=== PATIENT | female | born 1990 | race Caucasian/White ===

== ENCOUNTER 2018-01-26 02:35 | Inpatient (IN) | payer MEDICAID ==
[2018-01-26 03:17] LABS: URINE SOURCE RANDOM
[2018-01-26 03:24] LABS: URINE BILIRUBIN NEGATIVE (NEGATIVE); URINE BLOOD TRACE (NEGATIVE); URINE GLUCOSE (UA) NEGATIVE (NEGATIVE); URINE KETONE NEGATIVE (NEGATIVE); URINE LEUKOCYTE ESTERASE SMALL (NEGATIVE); URINE MICROSCOPIC INDICATED? YES; URINE NITRATE NEGATIVE (NEGATIVE); URINE PH 5.5 (4.6 - 8.0); URINE PROTEIN TRACE mg/dL (NEGATIVE); URINE UROBILINOGEN 0.2 E.U./dL (0.2 - 1.0)
[2018-01-26 03:28] LABS: % EOSINOPHILS 0.9 % (0.0-5.0); BASOPHILE ABSOLUTE 0.1 Th/cumm (0-0.2); EOSINOPHILE ABSOLUTE 0.1 Th/cmm (0.1-0.4); MONOCYTE ABSOLUTE 0.7 Th/cmm (0.3-1.0)
[2018-01-26 03:30] LABS: % BASOPHILS 0.4 % (0.0-2.0); % LYMPHOCYTES 13.9 % (20.0-50.0); % MONOCYTES 4.7 % (2.0-10.0); % NEUTROPHILS 80.1 % (40.0-80.0); HEMOGLOBIN 13.9 gm/dL (12-16); MEAN CELL VOLUME 85.6 fl (81-100); MEAN CORPUSCULAR HEMOGLOBIN 30.5 pg (27.0-31.0); MEAN CORPUSCULAR HGB CONC 35.6 pg (28.0-36.0); MEAN PLATELET VOLUME 8.3 fl; NEUTROPHILE ABSOLUTE 11.2 Th/cmm (1.8-8.0); PLATELET COUNT 260 Th/cmm (150-400); RED BLOOD COUNT 4.56 Mil/cmm (3.80-5.10); RED CELL DISTRIBUTION WIDTH 12.6 % (11.5-20.0); WHITE BLOOD COUNT 14.1 Th/cmm (4.8-10.8)
[2018-01-26 03:31] LABS: URINE CLARITY HAZY (CLEAR); URINE COLOR YELLOW
[2018-01-26 03:34] LABS: URINE BACTERIA MODERATE /hpf (NONE SEEN); URINE EPITHELIAL CELLS MANY /lpf (FEW); URINE RBC 0-2 /hpf (0-5)
[2018-01-26 03:36] LABS: ALB/GLOB RATIO 1.5 (1.0-1.8); ALBUMIN 4.3 gm/dL (3.7-5.3); ALKALINE PHOSPHATASE 58 U/L (34-104); ANION GAP 13.5 (7.0-16.0); BILIRUBIN,TOTAL 0.7 mg/dL (0.3-1.0); BUN - UREA NITROGEN 11 mg/dL (7-25); CALCIUM SERUM 9.3 mg/dL (8.6-10.3); CARBON DIOXIDE 22.9 mEq/L (21.0-31.0); CHLORIDE 105 mEq/L (98-107); CREATININE - SERUM 0.7 mg/dL (0.6-1.2); GFR AFRICAN-AMERICAN > 60.0 ml/min (>90); GFR NON AFRICAN-AMERICAN > 60.0 ml/min; GLUCOSE 119 mg/dL (70-105); LIPASE 33 U/L (11-82); POTASSIUM SERUM 3.4 mEq/L (3.5-5.1); SGOT 20 U/L (13-39); SGPT/ALT 16 U/L (7-52); SODIUM SERUM 138 mEq/L (136-145); TOTAL PROTEIN,SERUM 7.1 gm/dL (6.0-8.3)
--- NOTE | 2018-01-26 03:47 | ED Physician Chart ---
ED Chief Complaint/HPI - Patient Information Date Seen:: 01/26/18 Time Seen:: 03:46 Chief Complaint:: Epigastric pain History of Present Illness:: 27 yo previously healthy female had sudden onset of sharp, constant epigastric pain for 8 hours. Patient had nausea and vomited once with food content without blood. Patient had chills but denied fever or diarrhea. Allergies:: Allergies Allergy/AdvReac Type Severity Reaction Status Date / Time No Known Allergies Allergy Verified 01/26/18 02:52 Vitals:: Vital Signs - 8 hr 01/26/18 02:40 Temp 97.8 F HR 76 RR 18 BP 105/72 O2 Sat % 99 ED Review of Systems - Review of Systems General/Constitutional: Chills Skin: No rash Head: Light headed Eyes: No pain ENT: No nasal drainage Neck: No neck pain, No thyromegaly Cardio Vascular: No chest pain Pulmonary: SOB, No cough GI: Nausea, Vomiting, No diarrhea G/U: No dysuria Musculoskeletal: No bone or joint pain Psychiatric: No prior psych history Neurological: No focal symptoms ED Past Medical History - Past Medical History Past Medical History: No significant medical hx, Other () Social History: Non Smoker, No Alcohol, No Drug Use Surgical History: None Family Medical History - Family Member Mother History Unknown: Yes ED Physical Exam - Physical Examination General/Constitutional: Awake, Alert Head: Atraumatic Eyes: PERRL Skin: No skin lesions ENMT: Nasal exam nl Neck: No nuchal rigidity Respiratory: Clear to Auscultation, No Wheeze/Rhonchi/Rales Cardio Vascular: RRR, No murmur, gallop, rubs, NL S1 S2 Other GI comments:: Epigastric and RLQ tenderness Extremities: normal strength in all extremities Neuro/Psych: Normal sensory exam, Normal motor strength, No focal deficits ED Labs/Radiology/EKG Results - Lab Results Results: Laboratory Tests 01/26/18 01/26/18 01/26/18 02:50 02:50 03:10 WBC 14.1 H RBC 4.56 Hgb 13.9 Hct 39.0 L MCV 85.6 MCH 30.5 MCHC Differential 35.6 RDW 12.6 Plt Count 260 MPV 8.3 Neutrophils % 80.1 H Lymphocytes % 13.9 L Monocytes % 4.7 Eosinophils % 0.9 Basophils % 0.4 Sodium Potassium Chloride Carbon Dioxide Anion Gap BUN Creatinine Est GFR ( Amer) Est GFR (Non-Af Amer) BUN/Creatinine Ratio Glucose Calcium Total Bilirubin AST ALT Alkaline Phosphatase Total Protein Albumin Globulin Albumin/Globulin Ratio Lipase Urine Source RANDOM Urine Color YELLOW Urine Clarity HAZY Urine pH 5.5 Ur Specific [place] >= 1.030 Urine Protein TRACE Urine Glucose (UA) NEGATIVE Urine Ketones NEGATIVE Urine Blood TRACE Urine Nitrate NEGATIVE Urine Bilirubin NEGATIVE Urine Urobilinogen 0.2 Ur Leukocyte Esterase SMALL H Urine RBC 0-2 Urine WBC 6-10 H Ur Epithelial Cells MANY Urine Bacteria MODERATE H Urine Test NEGATIVE 01/26/18 03:10 WBC RBC Hgb Hct MCV MCH MCHC Differential RDW Plt Count MPV Neutrophils % Lymphocytes % Monocytes % Eosinophils % Basophils % Sodium 138 Potassium 3.4 L Chloride 105 Carbon Dioxide 22.9 Anion Gap 13.5 BUN 11 Creatinine 0.7 Est GFR ( Amer) > 60.0 Est GFR (Non-Af Amer) > 60.0 BUN/Creatinine Ratio 15.7 Glucose 119 H Calcium 9.3 Total Bilirubin 0.7 AST 20 ALT 16 Alkaline Phosphatase 58 Total Protein 7.1 Albumin 4.3 Globulin 2.8 Albumin/Globulin Ratio 1.5 Lipase 33 Urine Source Urine Color Urine Clarity Urine pH Ur Specific [place] Urine Protein Urine Glucose (UA) Urine Ketones Urine Blood Urine Nitrate Urine Bilirubin Urine Urobilinogen Ur Leukocyte Esterase Urine RBC Urine WBC Ur Epithelial Cells Urine Bacteria Urine Test - Radiology Results Results: CT abdomen/pelvis without contrast: acute appendicitis with mild periappendiceal fat stranding. No free air or abscess. IUD in place within the uterus. CXR: normal - EKG Interpretations EKG Time:: 05:26 Rate & Rhythm: 67 bpm, sinus rhythm Lynco: Normal axis Intervals: Normal intervals Comments:: Normal EKG ED Assessment - Assessment General Assessment: Acute appendicitis Urinary tract infection Leukocytosis Mild hypokalemia Assessment/Comments:: CBC, CMP, PT/PTT, lactic acid, UA, UC Blood culture Zofran 4mg IV Pantoprazole 40mg IV Zosyn IV Flagyl IV NS 1L IV bolus K rider 20mEq IV CT abdomen/pelvis without contrast CXR, EKG Admit patient to med surg under Dr. Yeung Consulted general surgeon Dr. Miramontes ED Septic Shock - . Is Septic Shock (SBP<90, OR Lactate>4 mmol\L) present?: No - <6hrs of presentation: Vital Signs: Vital Signs - 8 hr 01/26/18 02:40 Temp 97.8 F HR 76 RR 18 BP 105/72 O2 Sat % 99 ED Reassessment (Disposition) - Reassessment Reassessment Condition:: Improved - Patient Disposition Discharge/Transfer:: Acute Care w/in this hosp Admitting Medical Physician:: Christiano Yeung
[2018-01-26] MEDS ORDERED: Sodium Chloride 0.9% 1,000 ML IV ONE (04:06)
[2018-01-26] MEDS ORDERED: Piperacillin Sodium/Tazobact 3.375 gm Vial IV ONE (04:10)
[2018-01-26] MEDS ORDERED: Potassium Phosphate 20 MMOLE in Sodium Chloride 0.9% 250 ML IV ONE (05:08)
[2018-01-26] MEDS ORDERED: Sodium Chloride 0.9% 1,000 ML IV SCH (05:15)
[2018-01-26] MEDS ORDERED: metroNIDAZOLE 500mg/NS 100mL 500 MG/100 ML BAG IV ONE ×2 (05:23→05:27)
[2018-01-26] MEDS ORDERED: KCL 20mEq/100mL Premix 20 MEQ/100 ML PIGGYBACK IV ONE ×2 (05:41→06:18)
[2018-01-26 06:17] LABS: INR 0.98 (0.5-1.4); PROTHROMBIN TIME (TEST) 9.9 SECONDS (9.5-11.5)
[2018-01-26 06:22] VITALS: BP 122/75
[2018-01-26] MEDS: Morphine Sulfate 4 mg/mL 1mL Syr IVP PRN ×3 (06:56→15:38)
--- NOTE | 2018-01-26 08:39 | History and Physical ---
History of Present Illness - HPI Chief Complaint: Abdominal pain. HPI: Patient refer that last chang she started with abdominal pain that increased reason why she came to ER. During ER evaluation was found elevated WBC, and abdominal CT showed appendicitis. 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 Pertinent Hx GI: Report: No Pertinent Hx Psych: Report: No Pertinent Hx Musculoskeletal: Report: No Pertinent Hx Rheumatologic: Report: No pertinent Hx Infectious Disease: Report: No Pertinent Hx Renal/: Report: No Pertinent Hx Endocrine: Report: No Pertinent Hx Dermatology: Report: No Pertinent Hx - Past Surgical History Past Surgical History: No pertinent Hx Family Medical History - Family Member Mother History Unknown: Yes Social History Smoke: No Alcohol: None Drugs: None Lives: With Family Domestic Violence: Negative - Medications Home Medications: Home Medication Medication Instructions Recorded Type NK [No Home Meds] 01/26/18 History - Allergies Allergies/Adverse Reactions: Allergies Allergy/AdvReac Type Severity Reaction Status Date / Time No Known Allergies Allergy Verified 01/26/18 02:52 Review of Systems - Review of Systems Constitutional: Report: Chills Eyes: Report: No Significant ENT: Report: No Significant Respiratory: Report: No Significant Cardiovascular: Report: No Significant Gastrointestinal: Report: Nausea, Vomiting, Abdominal Pain Genitourinary: Report: No Significant Musculoskeletal: Report: No Significant Skin: Report: No Significant Neurological: Report: No Significant Physical Exam - Physical Exam HEENT: Report: Ears Nose Throat within normal limits Neck: Report: Within normal limits Cardiovascular Systems: Report: Regular, Rate and Rhythm Respiratory: Report: Breath Sounds are within normal limits Abdomen: Report: Tender to palpation (specially in lower right abdomen, Rebound positive), Rebound upon palpation Back: Report: Inspection of back is within normal limits. Extremities: Report: Non-tender to palpation. Skin: Report: Color of skin is within normal limits Neuro/Psych: Report: Mood affect is within normal limits - Lab Results All Lab Results last 24 hours: Laboratory Results - last 24 hr 01/26/18 01/26/1818 02:50 02:50 03:10 WBC 14.1 H RBC 4.56 Hgb 13.9 Hct 39.0 L MCV 85.6 MCH 30.5 MCHC Differential 35.6 RDW 12.6 Plt Count 260 MPV 8.3 Neutrophils % 80.1 H Lymphocytes % 13.9 L Monocytes % 4.7 Eosinophils % 0.9 Basophils % 0.4 PT INR PTT (Actin FS) Sodium Potassium Chloride Carbon Dioxide Anion Gap BUN Creatinine Est GFR ( Amer) Est GFR (Non-Af Amer) BUN/Creatinine Ratio Glucose Whole Bld Lactic Acid Calcium Total Bilirubin AST ALT Alkaline Phosphatase Total Protein Albumin Globulin Albumin/Globulin Ratio Lipase Urine Source RANDOM Urine Color YELLOW Urine Clarity HAZY Urine pH 5.5 Ur Specific [place] >= 1.030 Urine Protein TRACE Urine Glucose (UA) NEGATIVE Urine Ketones NEGATIVE Urine Blood TRACE Urine Nitrate NEGATIVE Urine Bilirubin NEGATIVE Urine Urobilinogen 0.2 Ur Leukocyte Esterase SMALL H Urine RBC 0-2 Urine WBC 6-10 H Ur Epithelial Cells MANY Urine Bacteria MODERATE H Urine Test NEGATIVE 01/26/18 01/26/18 01/26/18 03:10 03:10 03:10 WBC RBC Hgb Hct MCV MCH MCHC Differential RDW Plt Count MPV Neutrophils % Lymphocytes % Monocytes % Eosinophils % Basophils % PT 9.9 INR 0.98 PTT (Actin FS) 27.9 Sodium 138 Potassium 3.4 L Chloride 105 Carbon Dioxide 22.9 Anion Gap 13.5 BUN 11 Creatinine 0.7 Est GFR ( Amer) > 60.0 Est GFR (Non-Af Amer) > 60.0 BUN/Creatinine Ratio 15.7 Glucose 119 H Whole Bld Lactic Acid 1.53 Calcium 9.3 Total Bilirubin 0.7 AST 20 ALT 16 Alkaline Phosphatase 58 Total Protein 7.1 Albumin 4.3 Globulin 2.8 Albumin/Globulin Ratio 1.5 Lipase 33 Urine Source Urine Color Urine Clarity Urine pH Ur Specific [place] Urine Protein Urine Glucose (UA) Urine Ketones Urine Blood Urine Nitrate Urine Bilirubin Urine Urobilinogen Ur Leukocyte Esterase Urine RBC Urine WBC Ur Epithelial Cells Urine Bacteria Urine Test - Assessment Assessment: Patient is awake, alert, in moderate pain. Dx: Appendicitis, UTI - Plan Plan: Patient is in IV NS, IV AB, and Pain control, she is NPO for surgery today.
--- NOTE | 2018-01-26 08:45 | Diagnostic Imaging Report ---
CHEST X-RAY: AP view INDICATION: Shortness of breath COMPARISON: None FINDINGS: There is no focal consolidation or pleural effusions The heart is normal in size. The osseous structures demonstrate no acute abnormalities. IMPRESSION: No focal consolidation identified.
--- NOTE | 2018-01-26 09:51 | Diagnostic Imaging Report ---
CT abdomen and pelvis without intravenous contrast Indication: Abdominal pain Comparison: None, Technique: Axial images were obtained from the lung bases to the bilateral proximal femurs without IV contrast. Coronal reconstructions were made. total DLP: 546, CTDI10.7 FINDINGS: hypoventilatory and atelectatic changes of the lung bases are noted. Assessment of the solid organs is limited due to lack of IV contrast. No evidence of focal hepatic, splenic, or pancreatic lesions. No focal adrenal lesions. No hydronephrosis or nephrolithiasis. An IUD is noted. Moderate stool is noted within the colon. Enlarged appendix is noted with multiple appendicoliths. The appendix measures up to 1.3 cm with mild haziness of the regional fat planes. No free fluid or free air. Osseous structures demonstrate no acute abnormalities. IMPRESSION: Findings consistent with acute appendicitis with multiple appendicoliths noted. Mild surrounding inflammatory changes are noted. No free fluid or abscess formation. IUD noted. Results were relayed to the referring ER doctor following the examination.
[2018-01-26] MEDS ORDERED: EPI INJ ONE ×3 (18:29→18:30)
[2018-01-26] MEDS ORDERED: BUPIVACAINE 0.5% INJ ONE ×3 (18:29→18:30)
[2018-01-26] MEDS ORDERED: fentaNYL Citrate 100 mcg/2mL Vial ONE (18:42)
[2018-01-26] MEDS ORDERED: Propofol **SURGERY USE ONLY** 20 ML IV ONE (19:43)
[2018-01-26] MEDS ORDERED: Neostigmine 10mg/10mL Vial ONE (19:44)
--- NOTE | 2018-01-26 21:16 | Operative Report ---
DATE OF SURGERY: 01/26/2018 TIME: 07:33 p.m. PREOPERATIVE DIAGNOSIS: Acute appendicitis, nonperforated. POSTOPERATIVE DIAGNOSIS: Acute appendicitis, nonperforated. OPERATION PERFORMED: Laparoscopic appendectomy. SPECIMENS: Appendix. ANESTHESIA: General and local. ANESTHESIOLOGIST: Please see record. ESTIMATED BLOOD LOSS: Minimal, less than 20 mL. SURGEON: Valentin Miramontes M.D. ASSEMBLER BRAZER: None. PROSTHETIC DEVICES: None. COMPLICATIONS: None. DESCRIPTION OF PROCEDURE: After confirming patient's identification and procedure to be done, the patient was placed in supine position. The patient administered general anesthesia and intubated uneventfully. The abdomen was then prepped and draped in usual sterile fashion. A time-out performed. A supraumbilical transverse incision was made with a scalpel. Fascia was incised, entered into the abdominal cavity without injuring underlying bowel. CO2 pneumoperitoneum achieved using open Jeffrey technique. The patient was placed in laparoscopic appendectomy position, head down, rotated to the left side. A 12 mm port was placed in right upper quadrant and a 5 mm port was placed in the suprapubic area. The appendix was identified. It was in retrocecal position, but nonperforated. There was some murky fluid, probably is from periappendicitis. The appendix was grasped. I used the EnSeal device to divide the mesoappendix and the base of the appendix was visualized. Fortunately, the base of the appendix was relatively free from inflammatory process. The Rhodell stapler device was then fired across the base of the appendix, flushed with the cecal appendix junction, and the appendix was removed. Hemostasis ensured. Irrigation of the right lower quadrant as well as the pelvis was then performed with the irrigation suction device. Irrigation fluid suctioned out. Hemostasis ensured. The appendix passed off as surgical specimen. The 12 mm port was removed. The Adriano-Lilo closure system was used to approximate the fascia using 0 Vicryl stitches. The two 5 mm port removed under direct visualization. The CO2 pneumoperitoneum was released. The supraumbilical port fascia was approximated with multiple interrupted 0 Vicryl sutures. The skin and subcutaneous were injected with local anesthesia. Skin was approximated using skin rishabh. Dressings were applied. The patient tolerated the procedure well. The patient was woken up from anesthesia and taken to recovery room in stable condition. JOB# [id number]
[2018-01-26] MEDS ORDERED: Sodium Chloride 0.9% 250 ML IV ONE (21:44)
[2018-01-26] MEDS: Sodium Chloride 0.9% 1,000 ML IV SCH (21:53)
[2018-01-26] MEDS ORDERED: Morphine Sulfate 4 mg/mL 1mL Syr IVP PRN (22:24)
[2018-01-26] MEDS ORDERED: HYDROmorphone 1 mg/mL 1mL Syr IVP PRN ×2 (22:25→23:14)
[2018-01-26] MEDS ORDERED: APAP/Oxycodone 5/325mg Tab PO PRN (22:27)
[2018-01-26] MEDS: metroNIDAZOLE 500mg/NS 100mL 500 MG/100 ML BAG IV SCH (23:30)
[2018-01-27] MEDS: Sodium Chloride 0.9% 1,000 ML IV SCH ×3 (04:05→23:31)
[2018-01-27 05:32] LABS: MEAN PLATELET VOLUME 8.4 fl; RED CELL DISTRIBUTION WIDTH 12.8 % (11.5-20.0)
[2018-01-27 05:39] LABS: HEMATOCRIT 33.2 % (41.0-60); HEMOGLOBIN 11.6 gm/dL (12-16); MEAN CELL VOLUME 88.3 fl (81-100); MEAN CORPUSCULAR HEMOGLOBIN 30.7 pg (27.0-31.0); MEAN CORPUSCULAR HGB CONC 34.8 pg (28.0-36.0); PLATELET COUNT 158 Th/cmm (150-400); RED BLOOD COUNT 3.76 Mil/cmm (3.80-5.10); WHITE BLOOD COUNT 10.1 Th/cmm (4.8-10.8)
[2018-01-27 06:01] LABS: ALB/GLOB RATIO 1.5 (1.0-1.8); ALBUMIN 3.2 gm/dL (3.7-5.3); ALKALINE PHOSPHATASE 40 U/L (34-104); ANION GAP 9.6 (7.0-16.0); BILIRUBIN,TOTAL 1.7 mg/dL (0.3-1.0); BUN - UREA NITROGEN 6 mg/dL (7-25); CALCIUM SERUM 7.7 mg/dL (8.6-10.3); CARBON DIOXIDE 24.2 mEq/L (21.0-31.0); CHLORIDE 107 mEq/L (98-107); CREATININE - SERUM 0.7 mg/dL (0.6-1.2); GFR AFRICAN-AMERICAN > 60.0 ml/min (>90); GFR NON AFRICAN-AMERICAN > 60.0 ml/min; GLUCOSE 119 mg/dL (70-105); POTASSIUM SERUM 3.8 mEq/L (3.5-5.1); SGOT 12 U/L (13-39); SGPT/ALT 12 U/L (7-52); SODIUM SERUM 137 mEq/L (136-145); TOTAL PROTEIN,SERUM 5.4 gm/dL (6.0-8.3)
[2018-01-27 07:22] LABS: BAND NEUTROPHILE 5 % (0-10); LYMPHOCYTE 6 % (20-50); MONOCYTE 2 % (2-10); NEUTROPHILS 87 % (40-80); PLATELET ESTIMATE ADEQUATE (NORMAL)
--- NOTE | 2018-01-27 08:52 | General Progress Note ---
Subjective - Review of Systems Service Date: 01/27/18 Subjective: I have abdominal pain Objective - Results Result Diagrams: 01/27/18 05:10 01/27/18 05:10 Recent Labs: Laboratory Last Values WBC 10.1 Th/cmm (4.8-10.8) 01/27/18 05:10 RBC 3.76 Mil/cmm (3.80-5.10) L 01/27/18 05:10 Hgb 11.6 gm/dL (12-16) L 01/27/18 05:10 Hct 33.2 % (41.0-60) L 01/27/18 05:10 MCV 88.3 fl (81-100) 01/27/18 05:10 MCH 30.7 pg (27.0-31.0) 01/27/18 05:10 MCHC Differential 34.8 pg (28.0-36.0) 01/27/18 05:10 RDW 12.8 % (11.5-20.0) 01/27/18 05:10 Plt Count 158 Th/cmm (150-400) 01/27/18 05:10 MPV 8.4 fl 01/27/18 05:10 Add Manual Diff YES 01/27/18 05:10 Neutrophils % 80.1 % (40.0-80.0) H 01/26/18 03:10 Band Neutrophils % 5 % (0-10) 01/27/18 05:10 Lymphocytes % 13.9 % (20.0-50.0) L 01/26/18 03:10 Monocytes % 4.7 % (2.0-10.0) 01/26/18 03:10 Eosinophils % 0.9 % (0.0-5.0) 01/26/18 03:10 Basophils % 0.4 % (0.0-2.0) 01/26/18 03:10 Neutrophils (Manual) 87 % (40-80) H 01/27/18 05:10 Lymphocytes 6 % (20-50) L 01/27/18 05:10 Monocytes 2 % (2-10) 01/27/18 05:10 Platelet Estimate ADEQUATE (NORMAL) 01/27/18 05:10 PT 9.9 SECONDS (9.5-11.5) 01/26/18 03:10 INR 0.98 (0.5-1.4) 01/26/18 03:10 PTT (Actin FS) 27.9 SECONDS (26.0-38.0) 01/26/18 03:10 Sodium 137 mEq/L (136-145) 01/27/18 05:10 Potassium 3.8 mEq/L (3.5-5.1) 01/27/18 05:10 Chloride 107 mEq/L (98-107) 01/27/18 05:10 Carbon Dioxide 24.2 mEq/L (21.0-31.0) 01/27/18 05:10 Anion Gap 9.6 (7.0-16.0) 01/27/18 05:10 BUN 6 mg/dL (7-25) L 01/27/18 05:10 Creatinine 0.7 mg/dL (0.6-1.2) 01/27/18 05:10 Est GFR ( Amer) > 60.0 ml/min (>90) 01/27/18 05:10 Est GFR (Non-Af Amer) > 60.0 ml/min 01/27/18 05:10 BUN/Creatinine Ratio 8.6 01/27/18 05:10 Glucose 119 mg/dL (70-105) H 01/27/18 05:10 POC Glucose 94 MG/DL (70 - 105) 01/26/18 12:36 Whole Bld Lactic Acid 1.53 mmol/L (0.60-1.99) 01/26/18 03:10 Calcium 7.7 mg/dL (8.6-10.3) L 01/27/18 05:10 Total Bilirubin 1.7 mg/dL (0.3-1.0) H 01/27/18 05:10 AST 12 U/L (13-39) L 01/27/18 05:10 ALT 12 U/L (7-52) 01/27/18 05:10 Alkaline Phosphatase 40 U/L (34-104) 01/27/18 05:10 Total Protein 5.4 gm/dL (6.0-8.3) L 01/27/18 05:10 Albumin 3.2 gm/dL (3.7-5.3) L 01/27/18 05:10 Globulin 2.2 gm/dL 01/27/18 05:10 Albumin/Globulin Ratio 1.5 (1.0-1.8) 01/27/18 05:10 Lipase 33 U/L (11-82) 01/26/18 03:10 Urine Source RANDOM 01/26/18 02:50 Urine Color YELLOW 01/26/18 02:50 Urine Clarity HAZY (CLEAR) 01/26/18 02:50 Urine pH 5.5 (4.6 - 8.0) 01/26/18 02:50 Ur Specific [place] >= 1.030 (1.005-1.030) 01/26/18 02:50 Urine Protein TRACE mg/dL (NEGATIVE) 01/26/18 02:50 Urine Glucose (UA) NEGATIVE mg/dL (NEGATIVE) 01/26/18 02:50 Urine Ketones NEGATIVE mg/dL (NEGATIVE) 01/26/18 02:50 Urine Blood TRACE (NEGATIVE) 01/26/18 02:50 Urine Nitrate NEGATIVE (NEGATIVE) 01/26/18 02:50 Urine Bilirubin NEGATIVE (NEGATIVE) 01/26/18 02:50 Urine Urobilinogen 0.2 E.U./dL (0.2 - 1.0) 01/26/18 02:50 Ur Leukocyte Esterase SMALL (NEGATIVE) H 01/26/18 02:50 Urine RBC 0-2 /hpf (0-5) 01/26/18 02:50 Urine WBC 6-10 /hpf (0-5) H 01/26/18 02:50 Ur Epithelial Cells MANY /lpf (FEW) 01/26/18 02:50 Urine Bacteria MODERATE /hpf (NONE SEEN) H 01/26/18 02:50 Urine Test NEGATIVE 01/26/18 02:50 Blood Type O POSITIVE 01/26/18 12:38 Antibody Screen NEGATIVE 01/26/18 12:38 - Physical Exam Vitals and I&O: Vital Signs Temp 98.5 F 01/27/18 08:00 Pulse 98 01/27/18 08:00 Resp 18 01/27/18 08:00 BP 86/60 01/27/18 08:00 Pulse Ox 98 01/27/18 08:00 Intake & Output 01/26/18 01/27/18 01/27/18 18:59 06:59 18:59 Intake Total 100 1080 Balance 100 1080 Weight (lbs) 73.482 kg Intake: Intake, IV Amount 100 1080 Piperacillin Sodium/ 100 50 Tazobact 3.375 gm In Sodium Chloride 0.9% 50 ml @ 100 mls/hr IV Q6HR ON LICENSE OF [facility] Rx#:[id number] Sodium Chloride 0.9% 1, 930 000 ml @ 150 mls/hr IV . Q6H40M ON LICENSE OF [facility] Rx#:[id number] metroNIDAZOLE 500mg/NS 100 100mL 500 mg In 100 ml @ 100 mls/hr IV Q8H ON LICENSE OF [facility] Rx# :[id number] Other: # Voids 3 # Bowel Movements 0 Weight Source Bedscale Active Medications: Current Medications Acetaminophen (Tylenol 650mg Supp) 650 mg RC Q6H PRN PRN Reason: Fever > 101 Stop: 03/27/18 21:41 Last Admin: 01/26/18 21:54 Dose: 650 mg Piperacillin Sod/Tazobactam (Sod 3.375 gm/ Sodium Chloride) 50 mls @ 100 mls/ hr IV Q6HR ON LICENSE OF [facility] Stop: 03/27/18 11:59 Last Admin: 01/27/18 07:26 Dose: 100 mls/hr Sodium Chloride (Nacl 0.9%) 1,000 mls @ 150 mls/hr IV .Q6H40M ON LICENSE OF [facility] Stop: 03/27/18 21:59 Last Admin: 01/27/18 04:05 Dose: 150 mls/hr Metronidazole (Flagyl) 500 mg in 100 mls @ 100 mls/hr IV Q8H ON LICENSE OF [facility] Stop: 03/28/18 00:00 Last Infusion: 01/27/18 01:52 Dose: Infused Ketorolac Tromethamine (Toradol) 30 mg IVP Q6H PRN PRN Reason: Pain (Moderate) Stop: 01/31/18 08:48 Last Admin: 01/26/18 23:30 Dose: 30 mg Morphine Sulfate (Morphine) 4 mg IVP Q2HR PRN PRN Reason: MODERATE PAIN Stop: 03/27/18 06:29 Ondansetron HCl (Zofran) 4 mg IV Q4H PRN PRN Reason: Nausea / Vomiting Stop: 03/27/18 22:29 Oxycodone/Acetaminophen (Percocet 5/325mg Oral Tab) 1 tab PO Q4H PRN PRN Reason: Pain (Mild) Stop: 03/27/18 22:26 General: Alert, Oriented x3, No acute distress HEENT: Atraumatic Neck: Supple Cardiovascular: Regular rate Lungs: Clear to auscultation Abdomen: Bowel sounds, Soft, Tender, Other (Surgical wound cover with dom and is clean.) Extremities: Other (No edema) Neurological: Normal gait Skin: Other (Warm and dry) Psych/Mental Status: Mental status NL Assessment/Plan - Assessment Assessment: Patient is awake, alert, in moderate pain. last chang after surgery patient had fever and Low BP. Dx: S/P appendectomy, S/P Appendicitis, UTI - Plan Plan: Patient is in IV NS, IV AB, and Pain control, Metronidazole was introduced and IV NS rate increased. she is NPO.
[2018-01-27] MEDS: metroNIDAZOLE 500mg/NS 100mL 500 MG/100 ML BAG IV SCH ×2 (08:55→16:31)
--- NOTE | 2018-01-27 14:15 | General Progress Note ---
Subjective - Review of Systems Service Date: 01/27/18 Events since last encounter: fever resolved Subjective: mild incisional pain, ambulating ok Objective - Results Result Diagrams: 01/27/18 05:10 01/27/18 05:10 Recent Labs: Laboratory Last Values WBC 10.1 Th/cmm (4.8-10.8) 01/27/18 05:10 RBC 3.76 Mil/cmm (3.80-5.10) L 01/27/18 05:10 Hgb 11.6 gm/dL (12-16) L 01/27/18 05:10 Hct 33.2 % (41.0-60) L 01/27/18 05:10 MCV 88.3 fl (81-100) 01/27/18 05:10 MCH 30.7 pg (27.0-31.0) 01/27/18 05:10 MCHC Differential 34.8 pg (28.0-36.0) 01/27/18 05:10 RDW 12.8 % (11.5-20.0) 01/27/18 05:10 Plt Count 158 Th/cmm (150-400) 01/27/18 05:10 MPV 8.4 fl 01/27/18 05:10 Add Manual Diff YES 01/27/18 05:10 Neutrophils % 80.1 % (40.0-80.0) H 01/26/18 03:10 Band Neutrophils % 5 % (0-10) 01/27/18 05:10 Lymphocytes % 13.9 % (20.0-50.0) L 01/26/18 03:10 Monocytes % 4.7 % (2.0-10.0) 01/26/18 03:10 Eosinophils % 0.9 % (0.0-5.0) 01/26/18 03:10 Basophils % 0.4 % (0.0-2.0) 01/26/18 03:10 Neutrophils (Manual) 87 % (40-80) H 01/27/18 05:10 Lymphocytes 6 % (20-50) L 01/27/18 05:10 Monocytes 2 % (2-10) 01/27/18 05:10 Platelet Estimate ADEQUATE (NORMAL) 01/27/18 05:10 PT 9.9 SECONDS (9.5-11.5) 01/26/18 03:10 INR 0.98 (0.5-1.4) 01/26/18 03:10 PTT (Actin FS) 27.9 SECONDS (26.0-38.0) 01/26/18 03:10 Sodium 137 mEq/L (136-145) 01/27/18 05:10 Potassium 3.8 mEq/L (3.5-5.1) 01/27/18 05:10 Chloride 107 mEq/L (98-107) 01/27/18 05:10 Carbon Dioxide 24.2 mEq/L (21.0-31.0) 01/27/18 05:10 Anion Gap 9.6 (7.0-16.0) 01/27/18 05:10 BUN 6 mg/dL (7-25) L 01/27/18 05:10 Creatinine 0.7 mg/dL (0.6-1.2) 01/27/18 05:10 Est GFR ( Amer) > 60.0 ml/min (>90) 01/27/18 05:10 Est GFR (Non-Af Amer) > 60.0 ml/min 01/27/18 05:10 BUN/Creatinine Ratio 8.6 01/27/18 05:10 Glucose 119 mg/dL (70-105) H 01/27/18 05:10 POC Glucose 94 MG/DL (70 - 105) 01/26/18 12:36 Whole Bld Lactic Acid 1.53 mmol/L (0.60-1.99) 01/26/18 03:10 Calcium 7.7 mg/dL (8.6-10.3) L 01/27/18 05:10 Total Bilirubin 1.7 mg/dL (0.3-1.0) H 01/27/18 05:10 AST 12 U/L (13-39) L 01/27/18 05:10 ALT 12 U/L (7-52) 01/27/18 05:10 Alkaline Phosphatase 40 U/L (34-104) 01/27/18 05:10 Total Protein 5.4 gm/dL (6.0-8.3) L 01/27/18 05:10 Albumin 3.2 gm/dL (3.7-5.3) L 01/27/18 05:10 Globulin 2.2 gm/dL 01/27/18 05:10 Albumin/Globulin Ratio 1.5 (1.0-1.8) 01/27/18 05:10 Lipase 33 U/L (11-82) 01/26/18 03:10 Urine Source RANDOM 01/26/18 02:50 Urine Color YELLOW 01/26/18 02:50 Urine Clarity HAZY (CLEAR) 01/26/18 02:50 Urine pH 5.5 (4.6 - 8.0) 01/26/18 02:50 Ur Specific [place] >= 1.030 (1.005-1.030) 01/26/18 02:50 Urine Protein TRACE mg/dL (NEGATIVE) 01/26/18 02:50 Urine Glucose (UA) NEGATIVE mg/dL (NEGATIVE) 01/26/18 02:50 Urine Ketones NEGATIVE mg/dL (NEGATIVE) 01/26/18 02:50 Urine Blood TRACE (NEGATIVE) 01/26/18 02:50 Urine Nitrate NEGATIVE (NEGATIVE) 01/26/18 02:50 Urine Bilirubin NEGATIVE (NEGATIVE) 01/26/18 02:50 Urine Urobilinogen 0.2 E.U./dL (0.2 - 1.0) 01/26/18 02:50 Ur Leukocyte Esterase SMALL (NEGATIVE) H 01/26/18 02:50 Urine RBC 0-2 /hpf (0-5) 01/26/18 02:50 Urine WBC 6-10 /hpf (0-5) H 01/26/18 02:50 Ur Epithelial Cells MANY /lpf (FEW) 01/26/18 02:50 Urine Bacteria MODERATE /hpf (NONE SEEN) H 01/26/18 02:50 Urine Test NEGATIVE 01/26/18 02:50 Blood Type O POSITIVE 01/26/18 12:38 Antibody Screen NEGATIVE 01/26/18 12:38 - Physical Exam Vitals and I&O: Vital Signs Temp 99.9 F 01/27/18 11:54 Pulse 97 01/27/18 11:54 Resp 18 01/27/18 11:54 BP 114/73 01/27/18 11:54 Pulse Ox 100 01/27/18 11:54 Intake & Output 01/26/18 01/27/18 01/27/18 18:59 06:59 18:59 Intake Total 100 1080 1050 Balance 100 1080 1050 Weight (lbs) 73.482 kg Intake: Intake, IV Amount 100 1080 1050 Piperacillin Sodium/ 100 50 50 Tazobact 3.375 gm In Sodium Chloride 0.9% 50 ml @ 100 mls/hr IV Q6HR [facility] Rx#:[id number] Sodium Chloride 0.9% 1, 930 1000 000 ml @ 150 mls/hr IV . Q6H40M [facility] Rx#:[id number] metroNIDAZOLE 500mg/NS 100 100mL 500 mg In 100 ml @ 100 mls/hr IV Q8H [facility] Rx# :[id number] Other: # Voids 3 # Bowel Movements 0 Weight Source Bedscale Active Medications: Current Medications Acetaminophen (Tylenol 650mg Supp) 650 mg RC Q6H PRN PRN Reason: Fever > 101 Stop: 03/27/18 21:41 Last Admin: 01/26/18 21:54 Dose: 650 mg Piperacillin Sod/Tazobactam (Sod 3.375 gm/ Sodium Chloride) 50 mls @ 100 mls/ hr IV Q6HR [facility] Stop: 03/27/18 11:59 Last Admin: 01/27/18 11:47 Dose: 100 mls/hr Sodium Chloride (Nacl 0.9%) 1,000 mls @ 150 mls/hr IV .Q6H40M [facility] Stop: 03/27/18 21:59 Last Admin: 01/27/18 11:47 Dose: 150 mls/hr Metronidazole (Flagyl) 500 mg in 100 mls @ 100 mls/hr IV Q8H [facility] Stop: 03/28/18 00:00 Last Admin: 01/27/18 08:55 Dose: 100 mls/hr Ketorolac Tromethamine (Toradol) 30 mg IVP Q6H PRN PRN Reason: Pain (Moderate) Stop: 01/31/18 08:48 Last Admin: 01/27/18 11:47 Dose: 30 mg Morphine Sulfate (Morphine) 4 mg IVP Q2HR PRN PRN Reason: MODERATE PAIN Stop: 03/27/18 06:29 Ondansetron HCl (Zofran) 4 mg IV Q4H PRN PRN Reason: Nausea / Vomiting Stop: 03/27/18 22:29 Oxycodone/Acetaminophen (Percocet 5/325mg Oral Tab) 1 tab PO Q4H PRN PRN Reason: Pain (Mild) Stop: 03/27/18 22:26 General: Alert, Oriented x3, No acute distress HEENT: Atraumatic Neck: Supple Cardiovascular: Regular rate Lungs: Clear to auscultation Abdomen: Bowel sounds, Soft, Tender, Other (Surgical wound cover with dom and is clean.) Extremities: Other (No edema) Neurological: Normal gait Skin: Other (Warm and dry) Psych/Mental Status: Mental status NL Other physical findings: abd: soft, mild incisional tenderness, incisions clean and dry. no wound infection - Procedures Procedures: Procedures Procedure Code Date INSPECTION OF LOWER INTESTINAL TRACT, PERC ENDO APPROACH [id number] 01/26/18 RESECTION OF APPENDIX, OPEN APPROACH [id number] 01/26/18 Assessment/Plan - Assessment Assessment: acute appendicitis POD#1 s/p lap appendectomy hemodynamically stable earlier fever, now afebrile VSS benign abd exam. WBC normal, H/H stable advance to full liquid diet dvt prophylaxis ok - Plan Plan: encourage OOB ambulate iv fluids iv abx stable for d/c home from surgical standpoint. pt given PO pain meds and abx pt agrees to f/u in my office as outpatient.
--- NOTE | 2018-01-27 16:56 | Consultation ---
DATE OF CONSULTATION: 01/26/2018 SURGICAL CONSULTATION TIME: 05:57 p.m. HISTORY OF PRESENT ILLNESS: The patient is a 27-year-old female, otherwise healthy. No previous GI related problems. Complains of a sudden onset, sharp, constant, initially epigastric abdominal pain, now localized to the right lower quadrant. She denies any previous similar abdominal pain. She had some nausea and vomited once. Denies any diarrhea or constipation or ill contacts, came to the ER. She was afebrile and her white blood cell count was mildly elevated at 14.1. She had a CT abdomen and pelvis, which was consistent with acute appendicitis. Surgery consulted in the ER. The patient has urine bacteria moderate. PAST MEDICAL HISTORY: The patient has no significant past medical history. SOCIAL HISTORY: No smoking history, alcohol history or recreational drug use. Lives with family. ALLERGIES: She has no known drug allergies. REVIEW OF SYSTEMS: Otherwise, negative except for what is described above in the GI system. She denies any chest pain, shortness of breath, urinary type symptoms. Remainder of review of systems is negative. PHYSICAL EXAMINATION: VITAL SIGNS: She is afebrile. She has a heart rate of 70-71 and the last one showed 119. Her blood pressure is stable 104/68. HEAD AND NECK: Within normal limits. CHEST: Clear to auscultation bilaterally. CARDIOVASCULAR: Regular rate. ABDOMEN: She has some mild right lower quadrant tenderness to deep palpation. She has no guarding, rebound, or generalized peritoneal signs. NEUROVASCULAR: Otherwise normal. No CVA, flank, or paraspinal tenderness. LABORATORY DATA: Her white blood cell count as mentioned 14.1, H and H of 13.9 and 39, platelet count 260. Coags are negative. Potassium 3.4. She got some potassium supplementation. Glucose 119, mildly elevated. LFTs are normal. UA shows urine bacteria moderate, 6-10 white blood cell count, small leukocyte esterase. Chest x-ray shows no focal consolidation. The CT abdomen and pelvis showed findings consistent with acute appendicitis with multiple appendicoliths noted, mild surrounding inflammatory changes are noted. No free fluid or abscess noted. The patient has been n.p.o. The patient on morphine, Zosyn, IV fluids. IMPRESSION AND PLAN: A 27-year-old female with no significant past medical history with abdominal pain, tenderness mostly in the right lower quadrant. At this time, she is afebrile. Vital signs otherwise stable, isolated tachycardic episode. She has mild leukocytosis. CT abdomen and pelvis have been reviewed and findings are consistent with acute appendicitis with appendicolith and inflammatory changes and thickening of the appendix. I did discuss with her the results and the patient is agreeable to surgery. I have recommended laparoscopic possible open appendectomy. The risks of surgery including bleeding, infection, possible bowel injury, peritonitis, but despite these risks, she wishes to proceed with surgery. All questions have been answered. We will plan for surgery faith. [facility]# [id number]
[2018-01-28] MEDS: metroNIDAZOLE 500mg/NS 100mL 500 MG/100 ML BAG IV SCH ×2 (02:10→09:39)
[2018-01-28 05:45] LABS: % BASOPHILS 0.3 % (0.0-2.0); % EOSINOPHILS 0.7 % (0.0-5.0); % LYMPHOCYTES 18.4 % (20.0-50.0); % MONOCYTES 8.7 % (2.0-10.0); % NEUTROPHILS 71.9 % (40.0-80.0); HEMATOCRIT 32.3 % (41.0-60); HEMOGLOBIN 10.9 gm/dL (12-16); LYMPHOCYTE ABSOLUTE 0.8 Th/cmm (1.5-3.0); MEAN CELL VOLUME 87.4 fl (81-100); MEAN CORPUSCULAR HEMOGLOBIN 29.3 pg (27.0-31.0); MEAN CORPUSCULAR HGB CONC 33.6 pg (28.0-36.0); MEAN PLATELET VOLUME 8.5 fl; MONOCYTE ABSOLUTE 0.4 Th/cmm (0.3-1.0); NEUTROPHILE ABSOLUTE 3.3 Th/cmm (1.8-8.0); PLATELET COUNT 146 Th/cmm (150-400); RED CELL DISTRIBUTION WIDTH 12.6 % (11.5-20.0); WHITE BLOOD COUNT 4.5 Th/cmm (4.8-10.8)
[2018-01-28 06:03] LABS: ALB/GLOB RATIO 1.3 (1.0-1.8); ALKALINE PHOSPHATASE 52 U/L (34-104); ANION GAP 10.4 (7.0-16.0); BILIRUBIN,TOTAL 0.8 mg/dL (0.3-1.0); BUN - UREA NITROGEN 8 mg/dL (7-25); CALCIUM SERUM 7.8 mg/dL (8.6-10.3); CARBON DIOXIDE 21.1 mEq/L (21.0-31.0); CHLORIDE 109 mEq/L (98-107); CREATININE - SERUM 0.6 mg/dL (0.6-1.2); GFR AFRICAN-AMERICAN > 60.0 ml/min (>90); GFR NON AFRICAN-AMERICAN > 60.0 ml/min; GLUCOSE 97 mg/dL (70-105); POTASSIUM SERUM 3.5 mEq/L (3.5-5.1); SGOT 21 U/L (13-39); SGPT/ALT 17 U/L (7-52); SODIUM SERUM 137 mEq/L (136-145); TOTAL PROTEIN,SERUM 5.3 gm/dL (6.0-8.3)
--- NOTE | 2018-01-28 08:45 | General Progress Note ---
Subjective - Review of Systems Service Date: 01/28/18 Subjective: I am better Objective - Results Result Diagrams: 01/28/18 05:20 01/28/18 05:20 Recent Labs: Laboratory Last Values WBC 4.5 Th/cmm (4.8-10.8) L 01/28/18 05:20 RBC 3.70 Mil/cmm (3.80-5.10) L 01/28/18 05:20 Hgb 10.9 gm/dL (12-16) L 01/28/18 05:20 Hct 32.3 % (41.0-60) L 01/28/18 05:20 MCV 87.4 fl (81-100) 01/28/18 05:20 MCH 29.3 pg (27.0-31.0) 01/28/18 05:20 MCHC Differential 33.6 pg (28.0-36.0) 01/28/18 05:20 RDW 12.6 % (11.5-20.0) 01/28/18 05:20 Plt Count 146 Th/cmm (150-400) L 01/28/18 05:20 MPV 8.5 fl 01/28/18 05:20 Add Manual Diff YES 01/27/18 05:10 Neutrophils % 71.9 % (40.0-80.0) 01/28/18 05:20 Band Neutrophils % 5 % (0-10) 01/27/18 05:10 Lymphocytes % 18.4 % (20.0-50.0) L 01/28/18 05:20 Monocytes % 8.7 % (2.0-10.0) 01/28/18 05:20 Eosinophils % 0.7 % (0.0-5.0) 01/28/18 05:20 Basophils % 0.3 % (0.0-2.0) 01/28/18 05:20 Neutrophils (Manual) 87 % (40-80) H 01/27/18 05:10 Lymphocytes 6 % (20-50) L 01/27/18 05:10 Monocytes 2 % (2-10) 01/27/18 05:10 Platelet Estimate ADEQUATE (NORMAL) 01/27/18 05:10 PT 9.9 SECONDS (9.5-11.5) 01/26/18 03:10 INR 0.98 (0.5-1.4) 01/26/18 03:10 PTT (Actin FS) 27.9 SECONDS (26.0-38.0) 01/26/18 03:10 Sodium 137 mEq/L (136-145) 01/28/18 05:20 Potassium 3.5 mEq/L (3.5-5.1) 01/28/18 05:20 Chloride 109 mEq/L (98-107) H 01/28/18 05:20 Carbon Dioxide 21.1 mEq/L (21.0-31.0) 01/28/18 05:20 Anion Gap 10.4 (7.0-16.0) 01/28/18 05:20 BUN 8 mg/dL (7-25) 01/28/18 05:20 Creatinine 0.6 mg/dL (0.6-1.2) 01/28/18 05:20 Est GFR ( Amer) > 60.0 ml/min (>90) 01/28/18 05:20 Est GFR (Non-Af Amer) > 60.0 ml/min 01/28/18 05:20 BUN/Creatinine Ratio 13.3 01/28/18 05:20 Glucose 97 mg/dL (70-105) 01/28/18 05:20 POC Glucose 94 MG/DL (70 - 105) 01/26/18 12:36 Whole Bld Lactic Acid 1.53 mmol/L (0.60-1.99) 01/26/18 03:10 Calcium 7.8 mg/dL (8.6-10.3) L 01/28/18 05:20 Total Bilirubin 0.8 mg/dL (0.3-1.0) 01/28/18 05:20 AST 21 U/L (13-39) 01/28/18 05:20 ALT 17 U/L (7-52) 01/28/18 05:20 Alkaline Phosphatase 52 U/L (34-104) 01/28/18 05:20 Total Protein 5.3 gm/dL (6.0-8.3) L 01/28/18 05:20 Albumin 3.0 gm/dL (3.7-5.3) L 01/28/18 05:20 Globulin 2.3 gm/dL 01/28/18 05:20 Albumin/Globulin Ratio 1.3 (1.0-1.8) 01/28/18 05:20 Lipase 33 U/L (11-82) 01/26/18 03:10 Urine Source RANDOM 01/26/18 02:50 Urine Color YELLOW 01/26/18 02:50 Urine Clarity HAZY (CLEAR) 01/26/18 02:50 Urine pH 5.5 (4.6 - 8.0) 01/26/18 02:50 Ur Specific [place] >= 1.030 (1.005-1.030) 01/26/18 02:50 Urine Protein TRACE mg/dL (NEGATIVE) 01/26/18 02:50 Urine Glucose (UA) NEGATIVE mg/dL (NEGATIVE) 01/26/18 02:50 Urine Ketones NEGATIVE mg/dL (NEGATIVE) 01/26/18 02:50 Urine Blood TRACE (NEGATIVE) 01/26/18 02:50 Urine Nitrate NEGATIVE (NEGATIVE) 01/26/18 02:50 Urine Bilirubin NEGATIVE (NEGATIVE) 01/26/18 02:50 Urine Urobilinogen 0.2 E.U./dL (0.2 - 1.0) 01/26/18 02:50 Ur Leukocyte Esterase SMALL (NEGATIVE) H 01/26/18 02:50 Urine RBC 0-2 /hpf (0-5) 01/26/18 02:50 Urine WBC 6-10 /hpf (0-5) H 01/26/18 02:50 Ur Epithelial Cells MANY /lpf (FEW) 01/26/18 02:50 Urine Bacteria MODERATE /hpf (NONE SEEN) H 01/26/18 02:50 Urine Test NEGATIVE 01/26/18 02:50 Blood Type O POSITIVE 01/26/18 12:38 Antibody Screen NEGATIVE 01/26/18 12:38 - Physical Exam Vitals and I&O: Vital Signs Temp 98.2 F 01/28/18 08:00 Pulse 80 01/28/18 08:00 Resp 18 01/28/18 08:00 BP 117/80 01/28/18 08:00 Pulse Ox 97 01/28/18 08:00 Intake & Output 01/27/18 01/28/18 01/28/18 18:59 06:59 18:59 Intake Total 2550 390 Output Total 0 Balance 2550 390 Weight (lbs) 72.575 kg 72.178 kg Intake: Intake, IV Amount 2350 150 Piperacillin Sodium/ 150 50 Tazobact 3.375 gm In Sodium Chloride 0.9% 50 ml @ 100 mls/hr IV Q6HR [facility] Rx#:[id number] Sodium Chloride 0.9% 1, 2000 000 ml @ 150 mls/hr IV . Q6H40M [facility] Rx#:[id number] metroNIDAZOLE 500mg/NS 200 100 100mL 500 mg In 100 ml @ 100 mls/hr IV Q8H [facility] Rx# :[id number] Oral 200 240 Output: Urine/Stool Mix 0 Other: # Voids 5 0 # Bowel Movements 0 Weight Source Bedscale Bedscale Active Medications: Current Medications Acetaminophen (Tylenol 650mg Supp) 650 mg RC Q6H PRN PRN Reason: Fever > 101 Stop: 03/27/18 21:41 Last Admin: 01/26/18 21:54 Dose: 650 mg Enoxaparin Sodium (Lovenox) 40 mg SUBQ DAILY [facility] Stop: 03/29/18 08:59 Piperacillin Sod/Tazobactam (Sod 3.375 gm/ Sodium Chloride) 50 mls @ 100 mls/ hr IV Q6HR [facility] Stop: 03/27/18 11:59 Last Admin: 01/28/18 05:49 Dose: 100 mls/hr Sodium Chloride (Nacl 0.9%) 1,000 mls @ 150 mls/hr IV .Q6H40M [facility] Stop: 03/27/18 21:59 Last Admin: 01/27/18 23:31 Dose: 150 mls/hr Metronidazole (Flagyl) 500 mg in 100 mls @ 100 mls/hr IV Q8H [facility] Stop: 03/28/18 00:00 Last Infusion: 01/28/18 04:57 Dose: Infused Ketorolac Tromethamine (Toradol) 30 mg IVP Q6H PRN PRN Reason: Pain (Moderate) Stop: 01/31/18 08:48 Last Admin: 01/27/18 11:47 Dose: 30 mg Morphine Sulfate (Morphine) 4 mg IVP Q2HR PRN PRN Reason: MODERATE PAIN Stop: 03/27/18 06:29 Ondansetron HCl (Zofran) 4 mg IV Q4H PRN PRN Reason: Nausea / Vomiting Stop: 03/27/18 22:29 Oxycodone/Acetaminophen (Percocet 5/325mg Oral Tab) 1 tab PO Q4H PRN PRN Reason: Pain (Mild) Stop: 03/27/18 22:26 General: Alert, Oriented x3, No acute distress HEENT: Atraumatic Neck: Supple Cardiovascular: Regular rate Lungs: Clear to auscultation Abdomen: Bowel sounds, Soft, Tender, Other (Surgical wound cover with dom and it is clean.) Extremities: Other (No edema) Neurological: Normal gait Skin: Other (Warm and dry) Psych/Mental Status: Mental status NL - Procedures Procedures: Procedures Procedure Code Date INSPECTION OF LOWER INTESTINAL TRACT, PERC ENDO APPROACH [id number] 01/26/18 RESECTION OF APPENDIX, OPEN APPROACH [id number] 01/26/18 Assessment/Plan - Assessment Assessment: Patient is awake, alert, with less abdominal pain. She is in clear liquid diet and will be advance today. She had a bowel movement today. Dx: S/P appendectomy , S/P Appendicitis, UTI - Plan Plan: Patient is in IV NS, IV AB, and Pain control, Metronidazole was introduced and IV NS rate increased. If patient has no fever and tolerate the food, it is Possible that she will be Discharge today at evening.
[2018-01-28] MEDS ORDERED: Enoxaparin 40 mg/0.4 mL 0.4mL Syr SUBQ SCH (09:00)
[2018-01-28] MEDS: Sodium Chloride 0.9% 1,000 ML IV SCH (09:42)
--- NOTE | 2018-01-28 10:38 | Pathology Report ---
[id number] Collection date: 01/26/2018 Surgeon: Dr. Stefania Miramontes Specimen Description: Appendix Gross Description: Received in formalin is a slightly enlarged appendix measuring 8.5 cm in length x 1.2 cm in diameter, with extensive orozco-irving exudate coating the outer surface of the specimen. Sectioning shows induration of the fatty tissue surrounding the appendix. There is an intact appendix wall and lumen identified. Mis Manager sections are submitted in two cassettes labeled A1 and A2. Microscopic Description: The histologic sections show appendix with extensive acute inflammation present consisting of large collections of neutrophils extending through the muscular wall and mucosal surfaces. Diagnosis: Acute appendicitis. [facility]# [id number] [facility]
--- NOTE | 2018-01-28 14:35 | General Progress Note ---
Subjective - Review of Systems Subjective: mild incisional pain, ambulating ok, tolerating po diet ok Objective - Results Result Diagrams: 01/28/18 05:20 01/28/18 05:20 Recent Labs: Laboratory Last Values WBC 4.5 Th/cmm (4.8-10.8) L 01/28/18 05:20 RBC 3.70 Mil/cmm (3.80-5.10) L 01/28/18 05:20 Hgb 10.9 gm/dL (12-16) L 01/28/18 05:20 Hct 32.3 % (41.0-60) L 01/28/18 05:20 MCV 87.4 fl (81-100) 01/28/18 05:20 MCH 29.3 pg (27.0-31.0) 01/28/18 05:20 MCHC Differential 33.6 pg (28.0-36.0) 01/28/18 05:20 RDW 12.6 % (11.5-20.0) 01/28/18 05:20 Plt Count 146 Th/cmm (150-400) L 01/28/18 05:20 MPV 8.5 fl 01/28/18 05:20 Add Manual Diff YES 01/27/18 05:10 Neutrophils % 71.9 % (40.0-80.0) 01/28/18 05:20 Band Neutrophils % 5 % (0-10) 01/27/18 05:10 Lymphocytes % 18.4 % (20.0-50.0) L 01/28/18 05:20 Monocytes % 8.7 % (2.0-10.0) 01/28/18 05:20 Eosinophils % 0.7 % (0.0-5.0) 01/28/18 05:20 Basophils % 0.3 % (0.0-2.0) 01/28/18 05:20 Neutrophils (Manual) 87 % (40-80) H 01/27/18 05:10 Lymphocytes 6 % (20-50) L 01/27/18 05:10 Monocytes 2 % (2-10) 01/27/18 05:10 Platelet Estimate ADEQUATE (NORMAL) 01/27/18 05:10 PT 9.9 SECONDS (9.5-11.5) 01/26/18 03:10 INR 0.98 (0.5-1.4) 01/26/18 03:10 PTT (Actin FS) 27.9 SECONDS (26.0-38.0) 01/26/18 03:10 Sodium 137 mEq/L (136-145) 01/28/18 05:20 Potassium 3.5 mEq/L (3.5-5.1) 01/28/18 05:20 Chloride 109 mEq/L (98-107) H 01/28/18 05:20 Carbon Dioxide 21.1 mEq/L (21.0-31.0) 01/28/18 05:20 Anion Gap 10.4 (7.0-16.0) 01/28/18 05:20 BUN 8 mg/dL (7-25) 01/28/18 05:20 Creatinine 0.6 mg/dL (0.6-1.2) 01/28/18 05:20 Est GFR ( Amer) > 60.0 ml/min (>90) 01/28/18 05:20 Est GFR (Non-Af Amer) > 60.0 ml/min 01/28/18 05:20 BUN/Creatinine Ratio 13.3 01/28/18 05:20 Glucose 97 mg/dL (70-105) 01/28/18 05:20 POC Glucose 94 MG/DL (70 - 105) 01/26/18 12:36 Whole Bld Lactic Acid 1.53 mmol/L (0.60-1.99) 01/26/18 03:10 Calcium 7.8 mg/dL (8.6-10.3) L 01/28/18 05:20 Total Bilirubin 0.8 mg/dL (0.3-1.0) 01/28/18 05:20 AST 21 U/L (13-39) 01/28/18 05:20 ALT 17 U/L (7-52) 01/28/18 05:20 Alkaline Phosphatase 52 U/L (34-104) 01/28/18 05:20 Total Protein 5.3 gm/dL (6.0-8.3) L 01/28/18 05:20 Albumin 3.0 gm/dL (3.7-5.3) L 01/28/18 05:20 Globulin 2.3 gm/dL 01/28/18 05:20 Albumin/Globulin Ratio 1.3 (1.0-1.8) 01/28/18 05:20 Lipase 33 U/L (11-82) 01/26/18 03:10 Urine Source RANDOM 01/26/18 02:50 Urine Color YELLOW 01/26/18 02:50 Urine Clarity HAZY (CLEAR) 01/26/18 02:50 Urine pH 5.5 (4.6 - 8.0) 01/26/18 02:50 Ur Specific [place] >= 1.030 (1.005-1.030) 01/26/18 02:50 Urine Protein TRACE mg/dL (NEGATIVE) 01/26/18 02:50 Urine Glucose (UA) NEGATIVE mg/dL (NEGATIVE) 01/26/18 02:50 Urine Ketones NEGATIVE mg/dL (NEGATIVE) 01/26/18 02:50 Urine Blood TRACE (NEGATIVE) 01/26/18 02:50 Urine Nitrate NEGATIVE (NEGATIVE) 01/26/18 02:50 Urine Bilirubin NEGATIVE (NEGATIVE) 01/26/18 02:50 Urine Urobilinogen 0.2 E.U./dL (0.2 - 1.0) 01/26/18 02:50 Ur Leukocyte Esterase SMALL (NEGATIVE) H 01/26/18 02:50 Urine RBC 0-2 /hpf (0-5) 01/26/18 02:50 Urine WBC 6-10 /hpf (0-5) H 01/26/18 02:50 Ur Epithelial Cells MANY /lpf (FEW) 01/26/18 02:50 Urine Bacteria MODERATE /hpf (NONE SEEN) H 01/26/18 02:50 Urine Test NEGATIVE 01/26/18 02:50 Blood Type O POSITIVE 01/26/18 12:38 Antibody Screen NEGATIVE 01/26/18 12:38 - Physical Exam Vitals and I&O: Vital Signs Temp 98 F 01/28/18 12:00 Pulse 88 01/28/18 12:00 Resp 18 01/28/18 12:00 BP 104/69 01/28/18 12:00 Pulse Ox 98 01/28/18 12:00 Intake & Output 01/27/18 01/28/18 01/28/18 18:59 06:59 18:59 Intake Total 2550 1440 150 Output Total 0 Balance 2550 1440 150 Weight (lbs) 72.575 kg 72.178 kg Intake: Intake, IV Amount 2350 1200 150 Piperacillin Sodium/ 150 100 50 Tazobact 3.375 gm In Sodium Chloride 0.9% 50 ml @ 100 mls/hr IV Q6HR [facility] Rx#:[id number] Sodium Chloride 0.9% 1, 1999 1000 000 ml @ 150 mls/hr IV . Q6H40M [facility] Rx#:[id number] metroNIDAZOLE 500mg/NS 200 100 100 100mL 500 mg In 100 ml @ 100 mls/hr IV Q8H [facility] Rx# :[id number] Oral 200 240 Output: Urine/Stool Mix 0 Other: # Voids 5 0 # Bowel Movements 0 Weight Source Bedscale Bedscale Active Medications: Current Medications Acetaminophen (Tylenol 650mg Supp) 650 mg RC Q6H PRN PRN Reason: Fever > 101 Stop: 03/27/18 21:41 Last Admin: 01/26/18 21:54 Dose: 650 mg Enoxaparin Sodium (Lovenox) 40 mg SUBQ DAILY [facility] Stop: 03/29/18 08:59 Last Admin: 01/28/18 09:50 Dose: Not Given Piperacillin Sod/Tazobactam (Sod 3.375 gm/ Sodium Chloride) 50 mls @ 100 mls/ hr IV Q6HR [facility] Stop: 03/27/18 11:59 Last Infusion: 01/28/18 14:03 Dose: Infused Sodium Chloride (Nacl 0.9%) 1,000 mls @ 150 mls/hr IV .Q6H40M [facility] Stop: 03/27/18 21:59 Last Admin: 01/28/18 09:42 Dose: 150 mls/hr Metronidazole (Flagyl) 500 mg in 100 mls @ 100 mls/hr IV Q8H [facility] Stop: 03/28/18 00:00 Last Infusion: 01/28/18 11:15 Dose: Infused Ketorolac Tromethamine (Toradol) 30 mg IVP Q6H PRN PRN Reason: Pain (Moderate) Stop: 01/31/18 08:48 Last Admin: 01/28/18 09:42 Dose: 30 mg Morphine Sulfate (Morphine) 4 mg IVP Q2HR PRN PRN Reason: MODERATE PAIN Stop: 03/27/18 06:29 Ondansetron HCl (Zofran) 4 mg IV Q4H PRN PRN Reason: Nausea / Vomiting Stop: 03/27/18 22:29 Oxycodone/Acetaminophen (Percocet 5/325mg Oral Tab) 1 tab PO Q4H PRN PRN Reason: Pain (Mild) Stop: 03/27/18 22:26 General: Alert, Oriented x3, No acute distress HEENT: Atraumatic Neck: Supple Cardiovascular: Regular rate Lungs: Clear to auscultation Abdomen: Bowel sounds, Soft, Tender, Other (Surgical wound cover with dom and it is clean.) Extremities: Other (No edema) Neurological: Normal gait Skin: Other (Warm and dry) Psych/Mental Status: Mental status NL Other physical findings: abd: soft mild incisional tenderness. incisions clean and dry. - Procedures Procedures: Procedures Procedure Code Date INSPECTION OF LOWER INTESTINAL TRACT, PERC ENDO APPROACH [id number] 01/26/18 RESECTION OF APPENDIX, OPEN APPROACH [id number] 01/26/18 Assessment/Plan - Assessment Assessment: acute appendicitis POD#2 s/p lap appendectomy hemodynamically stable earlier fever, now afebrile VSS benign abd exam. WBC normal, H/H stable tolerating full liquid diet dvt prophylaxis ok - Plan Plan: encourage OOB ambulate iv fluids iv abx stable for d/c home from surgical standpoint. pt given PO pain meds and abx pt agrees to f/u in my office as outpatient.
--- NOTE | 2018-01-28 21:18 | Discharge Summary ---
General Discharge Summary - Discharge Summary Date of Admission: 01/26/18 Admitting Diagnosis: Acute appendicitis Discharge Date: 01/28/18 Discharge Diagnosis: S/P appendicitys, S/P Appendectomy. Laboratory Findings: Laboratory Results - last 24 hr 01/28/18 01/28/18 05:20 05:20 WBC 4.5 L RBC 3.70 L Hgb 10.9 L Hct 32.3 L MCV 87.4 MCH 29.3 MCHC Differential 33.6 RDW 12.6 Plt Count 146 L MPV 8.5 Neutrophils % 71.9 Lymphocytes % 18.4 L Monocytes % 8.7 Eosinophils % 0.7 Basophils % 0.3 Sodium 137 Potassium 3.5 Chloride 109 H Carbon Dioxide 21.1 Anion Gap 10.4 BUN 8 Creatinine 0.6 Est GFR ( Amer) > 60.0 Est GFR (Non-Af Amer) > 60.0 BUN/Creatinine Ratio 13.3 Glucose 97 Calcium 7.8 L Total Bilirubin 0.8 AST 21 ALT 17 Alkaline Phosphatase 52 Total Protein 5.3 L Albumin 3.0 L Globulin 2.3 Albumin/Globulin Ratio 1.3 Hospital Course: Patient had surgery and responded to treatment, Treatment: Patient was started in IV NS, IV sozyn, pain control, She had appendectomy and after surgery pain increased, she had low BP and fever, IV NS bolus was given and Metronidazole was introduced. The falowing day she had an evacuation an tolerated the regular diet. Disposition: PT DISCHARGED HOME Home Medications: Home Medication Medication Instructions Recorded Type Amoxicillin/Clavulanat [Augmentin 1 tab PO BID 5 Days tab 01/28/18 Rx 875-125mg] Hydrocodone/Acetaminophen [[place] 1 tab PO Q4H PRN #30 tab 01/28/18 Rx 325 mg-5 mg*] Prescriptions: Amoxicillin/Clavulanat [Augmentin 875-125mg] 1 tab PO BID 5 Days tab Hydrocodone/Acetaminophen [[place] 325 mg-5 mg*] 1 tab PO Q4H PRN #30 tab PRN Reason: Pain (Moderate) Discharge Diet: Regular Consults and Follow-Up: NO,PCP PER PATIENT [Other] not on staff,PCP is [Primary Care Provider] - Consulting Speciality: Surgery Instructions: Appendicitis, Laparoscopic Appendectomy
== END 2018-01-28 18:04 | disposition home or self-care (01) | DRG 710 ==
LOC: ER 02:35 → MSI 05:05 → TELE 23:30
PROVIDERS: ADMIT General Practice; ATTEND General Practice
PROC: 0DTJ4ZZ Resection of Appendix, Percutaneous Endoscopic Approach (ICD-10-PCS; principal; 2018-01-26)
DX: A41.9 Sepsis, unspecified organism (principal); K35.80 Unspecified acute appendicitis; E87.6 Hypokalemia; N39.0 Urinary tract infection, site not specified; R00.0 Tachycardia, unspecified
CPT/HCPCS: 36415-UA; 71045-TC; 80053-TC; 81001-TC; 81025-TC; 82948-90; 83605; 83690-TC; 85007-TC; 85025-TC; 85610-TC; 86850-TC; 86900-TC; 86901-TC; 87086-90; 90799; 93005; 96372; 96375; C9113; J1650; J1885; J2405; J2543; J2704; J2710; J3010; J3480; J7030; V2790; X6258; Z7512; Z7610